=== PATIENT | female | born 1990 | race Caucasian/White ===

== ENCOUNTER 2018-07-20 14:09 | Emergency (ER) | payer OTHER ==
[2018-07-20] MEDS ORDERED: Ondansetron PF 4 MG/2 ML Vial ONE (15:04)
[2018-07-20 15:16] LABS: #Basophils 0.2 thou/uL (0.0-0.2); #Lymphocytes 1.9 thou/uL (1.20-3.40); #Monocytes 1.3 thou/uL (0.11-0.59); #Neutrophils 7.9 thou/uL (1.40-6.50); %Basophils 1.4 % (0.0-1.0); %Eosinophils 0.4 % (0.0-10.0); %Lymphocytes 17.1 % (21.0-51.0); %Monocytes 11.4 % (0.0-10.0); %Neutrophils 69.8 % (42.0-75.0); Hemoglobin 12.3 g/dL (12.0-16.0); Mean Corpuscular HGB CONC 33.7 g/dL (32.0-36.0); Mean Corpuscular Hemoglobin 30.3 pg (27.0-31.0); Mean Corpuscular Volume 89.8 fL (78.0-98.0); Mean Platelet Volume 7.6 fL (7.4-10.4); Platelet Count 414 thou/uL (130-400); RBC Distribution Width 11.5 % (11.5-14.5); Red Blood Cell (RBC) Count 4.08 mill/uL (4.20-5.40); White Blood Cell (WBC) Count 11.3 thou/uL (4.8-10.8)
[2018-07-20 15:38] LABS: ALT (SGPT) 16 U/L (8-55); AST (SGOT) 22 U/L (5-34); Albumin 4.4 g/dL (3.5-5.0); Alkaline Phosphatase 52 U/L (40-150); Anion Gap 16 mmol/L (10-20); BUN (Urea Nitrogen) 6 mg/dL (7.0-18.7); Bilirubin, Total 0.6 mg/dL (0.2-1.2); Calc. Creatinine Clearance 0 mL/min (70-130); Calcium 9.6 mg/dL (7.8-10.44); Carbon Dioxide 21 mmol/L (22-29); Chloride 99 mmol/L (98-107); Estimated GFR-MDRD Greater than 90; Globulin 3.7 g/dL (2.4-3.5); Glucose 76 mg/dL (70-105); Potassium 3.7 mmol/L (3.5-5.1); Protein, Total 8.1 g/dL (6.0-8.3); Sodium 132 mmol/L (136-145)
[2018-07-20 16:11] LABS: Bilirubin Negative (Negative); Blood, Urine Trace (Negative); Clarity CLEAR (Clear); Glucose, Urine (Dipstick) Negative (Negative); Leukocyte Negative (Negative); Nitrite Negative (Negative); Protein, Urine (Dipstick) Negative (Neg-Trace); Specific Gravity, Urine 1.006 (1.002-1.036); Urobilinogen 0.2 mg/dL (0.2-1.0); pH, Urine 6.5 (5.0-9.0)
[2018-07-20 16:16] LABS: Bacteria/HPF None Seen HPF (None Seen); Hyaline Casts/LPF 0-3 HYALINE CAST LPF (0-3 Hyaline); Pathc Cast-AUWi Flag 0.27 (0-2.49); Squamous Epithelial 0-3 HPF (0-3); WBC/HPF 0-3 HPF (0-3)
== END 2018-07-20 17:17 | disposition home or self-care (01) ==
LOC: ERS 14:09
DX: O21.1 Hyperemesis gravidarum with metabolic disturbance (principal); O99.342 Other mental disorders complicating pregnancy, second trimester; F31.9 Bipolar disorder, unspecified; F41.9 Anxiety disorder, unspecified; Z3A.17 17 weeks gestation of pregnancy; Z79.899 Other long term (current) drug therapy
CPT/HCPCS: 80053; 81003; 81015; 85025; 96361; 96374; J2405

== ENCOUNTER 2018-07-24 08:25 | Outpatient (CLI) | payer OTHER ==
--- NOTE | 2018-07-24 09:07 | ULT ---
FUltrasound abdomen limited: (Right upper quadrant) 07/16/2018 HISTORY: 28-year-old female with nausea and vomiting. FINDINGS: Liver, pancreas, have normal sonographic appearances. Common duct caliber 4 mm. No hydronephrosis of right kidney. Gallbladder has normal wall thickness with no stones or sludge. No pericholecystic fluid or sonograph ic Hagen sign. IMPRESSION: Normal
== END 2018-07-24 08:26 | disposition home or self-care (01) ==
LOC: BICULT 08:25
PROVIDERS: ATTEND Obstetrics & Gynecology
DX: R11.2 Nausea with vomiting, unspecified (principal)
CPT/HCPCS: 76705

== ENCOUNTER 2018-09-12 09:18 | Observation (INO) | payer OTHER ==
[2018-09-12 10:00] VITALS: BMI 21.5
[2018-09-12] MEDS ORDERED: Acetaminophen 500 MG TAB PO SCH (10:15)
[2018-09-12] MEDS ORDERED: Ondansetron HCl/PF 4 MG in Sodium Chloride 0.9% 50 ML IVPB PRN (10:15)
[2018-09-12] MEDS ORDERED: Morphine 4 MG/ML VIAL ONE (10:15)
--- NOTE | 2018-09-12 10:15 | PDOC.LDHP ---
Labor and Delivery H&P Chief complaint: abdominal pain HPI: 28 y/o at 24w4d, patient of Dr. Nuñez, presents with left sided back, flank, and abdominal pain. Denies VB, LOF, ctx, or decreased FM. ROS neg for HEENT, cv, pulm, gi, gu, neuro, psych, skin, musculoskeletal or constitutional symptoms other than mentioned above. OB History Details: 1 prior term Past Medical History: Bipolar d/o Current medications: pre-gracy vitamins, other (seroquel) Previous surgical history: other (nose surgery, tonsillectomy) Allergies/Adverse Reactions: Allergies Allergy/AdvReac Type Severity Reaction Status Date / Time No Known Allergies Allergy Verified 09/12/18 09:56 Social history: none - Physical Exam Vital signs reviewed and normal: yes General: NAD, other (appears uncomfortable) Lungs: nonlabored breathing Abdomen: gravid Extremeties: no edema FHT: category 1 - Assessment Left sided kidney stone, partially obstructing but likely actively passing - Plan Plan: observation in L&D (for pain control) -: Stadol 2mg for pain IV fluids Flomax
[2018-09-12] MEDS ORDERED: Ondansetron PF 4 MG/2 ML Vial ONE (10:16)
[2018-09-12 10:18] LABS: Bilirubin Negative (Negative); Blood, Urine Trace (Negative); Clarity TURBID (Clear); Glucose, Urine (Dipstick) Negative (Negative); Leukocyte Moderate (Negative); Nitrite Negative (Negative); Protein, Urine (Dipstick) Negative (Neg-Trace); Specific Gravity, Urine 1.009 (1.002-1.036); Urobilinogen 0.2 mg/dL (0.2-1.0)
[2018-09-12 10:21] LABS: Bacteria/HPF 1+ HPF (None Seen); Pathc Cast-AUWi Flag 0.95 (0-2.49)
[2018-09-12] MEDS: Lactated Ringer's 1,000 ML IV SCH ×4 (10:23→23:39)
[2018-09-12] MEDS: Morphine 4 MG/ML VIAL SLOW IVP PRN (10:32)
[2018-09-12 10:33] LABS: Crystals/HPF 2+ AMORPH PHOS HPF (Negative); Hyaline Casts/LPF 0-3 HYALINE CAST LPF (0-3 Hyaline); Renal Epithelial None Seen HPF (0-3); Transitional Epithelial NONE SEEN HPF (0-3)
[2018-09-12 10:35] LABS: Urine Culture Reflex No No
[2018-09-12 11:04] LABS: #Basophils 0.1 thou/uL (0.0-0.2); #Eosinphils 0.1 thou/uL (0.0-0.7); #Lymphocytes 2.4 thou/uL (1.20-3.40); #Monocytes 1.5 thou/uL (0.11-0.59); #Neutrophils 7.4 thou/uL (1.40-6.50); %Basophils 0.8 % (0.0-1.0); %Eosinophils 0.9 % (0.0-10.0); %Lymphocytes 20.7 % (21.0-51.0); %Monocytes 12.9 % (0.0-10.0); %Neutrophils 64.6 % (42.0-75.0); Hemoglobin 10.7 g/dL (12.0-16.0); Mean Corpuscular HGB CONC 34.2 g/dL (32.0-36.0); Mean Corpuscular Hemoglobin 30.5 pg (27.0-31.0); Mean Corpuscular Volume 89.1 fL (78.0-98.0); Mean Platelet Volume 8.2 fL (7.4-10.4); Platelet Count 383 thou/uL (130-400); RBC Distribution Width 11.3 % (11.5-14.5); Red Blood Cell (RBC) Count 3.52 mill/uL (4.20-5.40); White Blood Cell (WBC) Count 11.4 thou/uL (4.8-10.8)
[2018-09-12 11:23] LABS: ALT (SGPT) 17 U/L (8-55); AST (SGOT) 19 U/L (5-34); Albumin 4.1 g/dL (3.5-5.0); Alkaline Phosphatase 62 U/L (40-150); Anion Gap 14 mmol/L (10-20); BUN (Urea Nitrogen) 9 mg/dL (7.0-18.7); Bilirubin, Total 0.2 mg/dL (0.2-1.2); Calc. Creatinine Clearance 159 mL/min (70-130); Calcium 9.9 mg/dL (7.8-10.44); Carbon Dioxide 25 mmol/L (22-29); Chloride 103 mmol/L (98-107); Estimated GFR-MDRD Greater than 90; Globulin 2.8 g/dL (2.4-3.5); Glucose 89 mg/dL (70-105); Potassium 3.8 mmol/L (3.5-5.1); Protein, Total 6.9 g/dL (6.0-8.3); Sodium 138 mmol/L (136-145)
[2018-09-12] MEDS ORDERED: Promethazine HCl 25 MG/ML VIAL IVPB PRN (11:52)
--- NOTE | 2018-09-12 11:57 | ULT ---
US Renal Bilateral STANDARD History: [Left flank pain.] Comparison: None. Findings: Real-time grayscale and color evaluation of the kidneys and urinary bladder was performed. The right kidney measures 11.9 x 6.8 x 6.3 cm with mild hydronephrosis. The right ureteral jet is nor mal. The left kidney measures 12.9 x 7.3 x 6 cm with moderate hydronephrosis. There is a calculus in the left ureterovesicular junction, on the bladder side of the junction, with a relatively weak le ft ureterovesicular urine jet. No renal mass is present. Prevoid urinary bladder volume is 503 mL. Impression: 1. Partially obstructive calculus left ureterovesicular junction, on the bladder side of the junction , with moderate left hydronephrosis. The stone appears to be actively passing as there is a weak left urine jet. 2. Right mild hydronephrosis of .
[2018-09-12] MEDS ORDERED: Tamsulosin HCl 0.4 MG CAP PO SCH (12:30)
[2018-09-12] MEDS ORDERED: Promethazine HCl 25 MG in Sodium Chloride 0.9% 50 ML IVPB PRN (12:39)
[2018-09-12] MEDS ORDERED: Tamsulosin HCl 0.4 MG CAP PO STA (13:16)
[2018-09-12] MEDS ORDERED: Butorphanol Tartrate 1 MG/ML VIAL ONE ×2 (14:39→14:47)
[2018-09-12] MEDS ORDERED: Butorphanol Tartrate 1 MG/ML VIAL SLOW IVP PRN (14:42)
[2018-09-12] MEDS ORDERED: Acetaminophen 500 MG TAB PO PRN (17:12)
[2018-09-12] MEDS ORDERED: Promethazine HCl 25 MG/ML VIAL IM PRN (17:12)
[2018-09-12] MEDS ORDERED: Ondansetron PF 4 MG/2 ML Vial IVP PRN (17:12)
[2018-09-12] MEDS: Butorphanol Tartrate 1 MG/ML VIAL SLOW IVP PRN ×3 (19:45→23:41)
[2018-09-13] MEDS: Morphine 4 MG/ML VIAL SLOW IVP PRN (01:15)
[2018-09-13] MEDS: Butorphanol Tartrate 1 MG/ML VIAL SLOW IVP PRN ×3 (03:05→08:40)
--- NOTE | 2018-09-13 06:38 | PDOC.LDPN ---
Labor & Delivery Progress Note - Subjective Subjective: comfortable, no concerns, other (Some mild left flank pain, improved from yesterday) - Objective Vital signs reviewed and normal: yes General: NAD Uterine fundus: non tender [place] contractions every: None - Assessment (1) with nephrolithiasis Code(s): O26.839 - RELATED RENAL DISEASE, UNSPECIFIED TRIMESTER; N20.0 - CALCULUS OF KIDNEY Current Visit: Yes Status: Acute Comment: - Cont pain control with stadol and morphine, daily flomax. Has some sediment on urine screen, likely passing vs passed, consider DC later today. Pain currently well controlled. Afebrile
[2018-09-13] MEDS: Lactated Ringer's 1,000 ML IV SCH ×2 (07:55→08:19)
[2018-09-13] MEDS ORDERED: Tamsulosin HCl 0.4 MG CAP PO SCH (09:00)
[2018-09-13] MEDS ORDERED: Acetaminophen/Codeine 30-300mg Tablet PO PRN ×2 (09:13)
--- NOTE | 2018-09-13 09:34 | PDOC.EVN ---
Event Note - Event Note Event Note: Patient seen with Dr. Winkler. Pain much better at this time. She is agreeable to trial of PO pain medication and repeat UA this morning. Will likely d/c this afternoon if tolerating PO and pain well-controlled. Addendum - Attending - Attending Attestation Date/Time: 09/13/18 3938 I personally evaluated the patient and discussed the management with Dr. Hernandez. I agree with the Assessment and Plan documented above.
[2018-09-13 09:52] LABS: Bilirubin Negative (Negative); Blood, Urine Moderate (Negative); Clarity CLOUDY (Clear); Glucose, Urine (Dipstick) Negative (Negative); Leukocyte Negative (Negative); Nitrite Negative (Negative); Protein, Urine (Dipstick) Negative (Neg-Trace); Specific Gravity, Urine 1.003 (1.002-1.036); Urobilinogen 0.2 mg/dL (0.2-1.0); pH, Urine 7.5 (5.0-9.0)
[2018-09-13 09:54] VITALS: BP 127/71; TEMP 97.9
[2018-09-13 09:54] LABS: Bacteria/HPF None Seen HPF (None Seen); Hyaline Casts/LPF 0-3 HYALINE CAST LPF (0-3 Hyaline); Pathc Cast-AUWi Flag 0.13 (0-2.49); RBC/HPF 0-3 HPF (0-3); Squamous Epithelial 0-3 HPF (0-3)
--- NOTE | 2018-09-13 10:09 | PDOC.EVN ---
Event Note - Event Note Event Note: 28 yo at 24w here for symptomatic nephrolithiasis. She was admitted overnight for IV fluids, pain control and this morning has passed kidney stone. Overall feeling much better, tolerating PO. Renal sono showed mild hydronephrosis but no evidence of abscess. Labs reviewed and repeat UA showed no bacteria or e/o infection apart for few WBC and RBC. Will discharge today with short supply of Tylenol #3 (12) for pain control. Stone sent for evaluation. F/u with Dr. Garcia within next week advised. Addendum - Attending - Attending Attestation Date/Time: 09/13/18 2159 I personally evaluated the patient and discussed the management with Dr. Hernandez. Feeling much better since passing stone this AM. UA is unremarkable this AM. DC home with precautions. I agree with the Assessment and Plan documented above.
--- NOTE | 2018-09-15 14:56 | DIS ---
DATE OF ADMISSION: 09/12/2018 DATE OF DISCHARGE: 09/13/2018 RESIDENT: Camille Hernandez MD, PGY-3 ADMITTING ATTENDING: Shikha Burrows MD DISCHARGE ATTENDING: Paul Winkler MD. IMAGING: Renal ultrasound (09/12/2018): 1. Partially obstructive calculus at the left ureterovesical junction on the bladder side of the junction with moderate left hydronephrosis. The stone appears to be actively passing as there is a weak left urine jet. 2. Right mild hydronephrosis of . DISCHARGE MEDICATIONS: 1. vitamin. 2. Tylenol No.3, take one tablet q.6 hours p.r.n. severe pain, quantity 12. HISTORY OF PRESENT ILLNESS/HOSPITAL COURSE: The patient is a 28-year-old G2, P1 , who presented at 24 weeks and 4 days with left-sided back and flank pain. She denied any other symptoms at that time. A renal ultrasound was performed which showed a stone at the left ureterovesical junction. She was admitted for pain control and IV hydration. She passed the stone the following morning with significant pain relief apart from some mild cramping pains which were intermittent. She was tolerating p.o. and voiding without issue prior to discharge. She is being discharged with pain medications and instructions to follow up with Dr. Nuñez within the next week. Repeat urinalysis was performed which did not show any signs of infection. DISPOSITION: Stable. DISCHARGE INSTRUCTIONS: 1. Location: Home. 2. Diet: Regular. 3. Activity: As tolerated. 4. Followup: With Dr. Nuñez within 1 week. Job ID: [id number] MTDD
[2018-09-18 13:12] LABS: CA Phosphate 97 % (.); Color Tan (.); Stone Size 3x3x3 mm (.); Stone Weight 20.3 mg (.)
== END 2018-09-13 10:41 | disposition home health service (06) ==
LOC: L&D/OP 09:18 → L&D 17:22
PROVIDERS: ADMIT Obstetrics & Gynecology; ATTEND Obstetrics & Gynecology
DX: O99.89 Other specified diseases and conditions complicating pregnancy, childbirth and the puerperium (principal); N13.0 Hydronephrosis with ureteropelvic junction obstruction; Z3A.24 24 weeks gestation of pregnancy
CPT/HCPCS: 36415; 76770; 80053; 81001; 81003; 81015; 82365; 85025; 88300; 96361; 96374; 96375; 96376; 99285; G0378; J0595; J2270; J2405; J2550; J7050

== ENCOUNTER 2018-12-25 19:15 | Inpatient (IN) | payer OTHER ==
--- NOTE | 2018-12-25 08:21 | PDOC.LDHP ---
Labor and Delivery H&P Chief complaint: scheduled induction HPI: 28 yo @ 39w3d by LMP c/w 12 week CRL who presents for EIOL. PMHx: Depression on Lexapro and prior THC use, otherwise benign antepartum course. Current gestational age (weeks): 39 Dating criteria: last menstrual period Grav: 2 Para: 1 Current complications: none Abnormal US findings: No Past Medical History: Depression Bipolar d/o Current medications: pre-gracy vitamins, iron, other (Lexapro) Previous surgical history: other (T&A; nasal surgery) Allergies/Adverse Reactions: Allergies Allergy/AdvReac Type Severity Reaction Status Date / Time No Known Allergies Allergy Verified 09/12/18 09:56 Social history: drug use (Prior THC use, recent neg UDS) - Physical Exam Vital signs reviewed and normal: yes General: NAD Heart: RRR Lungs: CTAB Abdomen: gravid Extremeties: no edema FHT: category 1 (120s, mod tunde, +accels, no decels) [place] contractions every: q1-2 min - Vaginal Exam cm dilated: 8 (AROM- thick mec; cephalic) Effacement: 100% Station: 0 - OB Labs Blood type: O RH: positive Antibody Screen: negative HIV: negative RPR: negative HEPSAg: negative 1 hour GCT: negative GBS: negative Urine drug screen: positive (recent UDS neg) Rubella: immune - Assessment 39w3d IUP EIOL Anemia Prior THC use Depression - Plan Plan: admit to L&D, cervical ripening (s/p cytotec, now on pitocin), informed consent obtained, anesthesia consult for pain management
[2018-12-26 00:56] VITALS: BMI 25.2
[2018-12-26] MEDS ORDERED: Diphenoxylate HCl/Atropine Tablet PO PRN (01:02)
[2018-12-26] MEDS ORDERED: Ibuprofen 800 MG TAB PO PRN (01:02)
[2018-12-26] MEDS ORDERED: Promethazine HCl 25 MG/ML VIAL IM PRN ×2 (01:02→05:55)
[2018-12-26] MEDS ORDERED: Carboprost 250 MCG/ML AMP IM PRN (01:02)
[2018-12-26] MEDS ORDERED: Acetaminophen 500 MG TAB PO PRN (01:02)
[2018-12-26] MEDS ORDERED: HYDROcodone/Acetaminophen 5/325 mg Tablet PO PRN (01:02)
[2018-12-26] MEDS ORDERED: NS / Oxytocin 40 units/1000ml 1,000 ML IV PRN (01:02)
[2018-12-26] MEDS ORDERED: Misoprostol 200 MCG TAB PR PRN (01:02)
[2018-12-26] MEDS ORDERED: hydrALAZINE 20 MG/ML VIAL SLOW IVP PRN ×2 (01:02→09:12)
[2018-12-26] MEDS ORDERED: Lidocaine 1% (PF) 30 ML VIAL SC PRN (01:02)
[2018-12-26] MEDS ORDERED: Methylergonovine 0.2 MG/ML VIAL IM PRN (01:02)
[2018-12-26] MEDS ORDERED: Ondansetron PF 4 MG/2 ML Vial IVP PRN ×2 (01:02→05:55)
[2018-12-26] MEDS ORDERED: Butorphanol Tartrate 1 MG/ML VIAL SLOW IVP PRN (01:02)
[2018-12-26] MEDS: Misoprostol 100 MCG TAB VAG SCH (01:27)
[2018-12-26] MEDS: Lactated Ringer's 1,000 ML IV SCH (01:27)
[2018-12-26 01:30] LABS: Mean Corpuscular HGB CONC 34.3 g/dL (32.0-36.0); Mean Corpuscular Hemoglobin 28.9 pg (27.0-31.0); Mean Corpuscular Volume 84.3 fL (78.0-98.0); Mean Platelet Volume 8.5 fL (7.4-10.4); Platelet Count 293 thou/uL (130-400); RBC Distribution Width 15.2 % (11.5-14.5); Red Blood Cell (RBC) Count 3.79 mill/uL (4.20-5.40); White Blood Cell (WBC) Count 9.9 thou/uL (4.8-10.8)
[2018-12-26 02:08] LABS: HBSAg Index 0.18 S/CO (0-0.99); HIV (1/2) Antibody/Antigen Non-Reactive (NonReactive); HIV 1/2 INDEX 0.09 S/CO (<1.00); Hep B Surf Ag Non-Reactive S/CO (NonReactive)
[2018-12-26 04:30] LABS: Syphilis Antibody Nonreactive (Nonreactive); Syphilis Antibody Index 0.04 S/CO (<1.00 Non-Reactive)
[2018-12-26] MEDS ORDERED: Lidocaine 1.5%/Epinephrine 1:200,000 5 ML AMPUL IJ ONE (05:21)
[2018-12-26] MEDS ORDERED: Fentanyl 4 mcg/Bup 0.1% Cadd 100 ML ONE (05:22)
[2018-12-26] MEDS ORDERED: ePHEDrine/0.9% NaCl/PF SYRINGE 50 mg/10 ml SLOW IVP PRN (05:55)
[2018-12-26] MEDS ORDERED: Acetaminophen 325 MG TAB PO PRN (05:55)
[2018-12-26] MEDS ORDERED: Lactated Ringer's 500 ML IV PRN (05:55)
[2018-12-26] MEDS ORDERED: diphenhydrAMINE 50 MG/ML VIAL IVP PRN (05:55)
[2018-12-26] MEDS ORDERED: Naloxone HCl 0.4 mg/ml Vial IVP PRN ×2 (05:55)
[2018-12-26] MEDS ORDERED: Communication Order-Pharmacy FS SCH (06:00)
[2018-12-26] MEDS ORDERED: Fentanyl 4 mcg/Bupivacaine 0.1% Cassette 100 ML EPIDURAL SCH (06:00)
[2018-12-26] MEDS ORDERED: Lidocaine 1% (PF) 30 ML VIAL ONE (08:20)
[2018-12-26] MEDS ORDERED: NS / Oxytocin 40 units/1000ml 1,000 ML ONE (08:20)
--- NOTE | 2018-12-26 08:49 | PDOC.OPDEL ---
OB Operative/Delivery Note Delivery Dr/Surgeon: Dia Nuñez DO Pre-Delivery Diagnosis: elective induction Procedure/Post Delivery Dx: spontaneous vaginal delivery Weeks gestation: 39 Anesthesia: epidural - Findings A Sex: female - 1 min: 8 - 5 min: 9 - Additional Findings/Plan Placenta delivered: spontaneous Repaired Obstetrical Laceration: 2nd degree Estimated blood loss: EBL 200 cc Compilations/Other Findings: in cephalic presentation ISMAEL position Meconium stained AF Normal appearing placenta Post delivery plan: routine recovery
[2018-12-26] MEDS ORDERED: diphenhydrAMINE 25 MG CAP PO PRN (09:12)
[2018-12-26] MEDS ORDERED: NS / Oxytocin 40 units/1000ml 1,000 ML IV SCH (09:12)
[2018-12-26] MEDS ORDERED: Preparation H Ointment 28 GM TUBE PR PRN (09:12)
[2018-12-26] MEDS ORDERED: Milk Of Magnesia 30 ML UDCUP PO PRN (09:12)
[2018-12-26] MEDS ORDERED: Bisacodyl 10 MG SUPP PR PRN (09:12)
[2018-12-26] MEDS ORDERED: Lanolin Ointment 7 GM TUBE TOP PRN (09:12)
[2018-12-26 09:48] LABS: Amphetamine Not Detected (NotDetected); Barbiturates Screen Not Detected (NotDetected); Benzodiazepine Screen Not Detected (NotDetected); Cocaine Metabolite Screen Not Detected (NotDetected); Medtox Control Line Valid? VALID (VALID); Medtox Reader # READER 4; Methadone Not Detected (NotDetected); Methamphetamine Not Detected (NotDetected); Opiate Screen Not Detected (NotDetected); Oxycodone Screen Not Detected (NotDetected); Phencyclidine (PCP) Not Detected (NotDetected); THC/Cannabinoid Screen Not Detected (NotDetected); Tricyclic Screen Not Detected (NotDetected)
[2018-12-26] MEDS ORDERED: Bupivacaine 0.25% HCL 30 ML VIAL ONE (11:11)
[2018-12-26] MEDS: Ibuprofen 800 MG TAB PO SCH ×2 (11:44→20:24)
[2018-12-26] MEDS ORDERED: Benzocaine-Menthol 82.5 ML CAN TOP PRN (12:10)
[2018-12-26] MEDS ORDERED: Fentanyl 100 MCG/2 ML VIAL ONE (12:20)
[2018-12-26] MEDS ORDERED: Midazolam HCl 2 mg/2 ml Vial ONE (12:20)
[2018-12-26] MEDS: HYDROcodone/Acetaminophen 5/325 mg Tablet PO PRN ×3 (13:43→22:26)
[2018-12-26] MEDS: NS w/ Oxytocin 10 units 500 ML IV SCH (14:07)
[2018-12-26] MEDS: Ferrous Sulfate 325 MG TAB PO SCH (17:49)
[2018-12-26] MEDS: Docusate Calcium (SURFAK) 240 MG CAP PO SCH (20:24)
[2018-12-27] MEDS: HYDROcodone/Acetaminophen 5/325 mg Tablet PO PRN ×4 (02:01→21:30)
[2018-12-27] MEDS: Ibuprofen 800 MG TAB PO SCH ×3 (04:23→20:20)
[2018-12-27 06:29] LABS: Hemoglobin 10.4 g/dL (12.0-16.0); Mean Corpuscular HGB CONC 32.8 g/dL (32.0-36.0); Mean Corpuscular Hemoglobin 28.5 pg (27.0-31.0); Mean Platelet Volume 8.6 fL (7.4-10.4); Platelet Count 263 thou/uL (130-400); RBC Distribution Width 15.3 % (11.5-14.5); Red Blood Cell (RBC) Count 3.66 mill/uL (4.20-5.40); White Blood Cell (WBC) Count 11.6 thou/uL (4.8-10.8)
--- NOTE | 2018-12-27 06:44 | PDOC.PP ---
Post Progress Note Post Day #: 1 Subjective: Reports not sleeping well last night, baby just went to nursery. Backpain and cramping relieved with Ibuprofen. Has been using heating pad for hemorrhoid/ suture pain. Ambulating and tolerating diet. Desires to breastfeed however is having difficulty with latching. Breastfed first child successfully. PO intake tolerated: yes Flatus: yes Ambulation: yes Vital Signs (12 hours) Temp Pulse Resp BP Pulse Ox 12/27/18 04:20 98.3 F 80 16 119/58 L 12/26/18 20:00 98 F 78 18 108/57 L 98 Weight Weight 77.564 kg - Physical Examination General: NAD Cardiovascular: no m/r/g, RRR Respiratory: clear to auscultation bilaterally, non-labored breathing Abdominal: + bowel sounds, lochia, appropriately TTP Psychiatric: A&Ox3, normal affect Result Diagrams: 12/27/18 06:11 Additional Labs: Post Labs Blood Type O POSITIVE 12/26/18 02:08 Hep Bs Antigen Non-Reactive S/CO (NonReactive) 12/26/18 01:19 - Assessment/Plan 28 yo delivered via @39.4wk by LMP c/w 12wk US Term sIUP, delivered - PPD #1 - Meeting PP milestones, continue routine PP course - consulted - Likely discharge tomorrow Bess Molina MD PGY-2 Pt also evaluated by Dr Burrows
[2018-12-27] MEDS: Ferrous Sulfate 325 MG TAB PO SCH ×2 (09:00→16:45)
[2018-12-27] MEDS: Prenatal Vitamin 1 TAB PO SCH (09:00)
[2018-12-27] MEDS: Docusate Calcium (SURFAK) 240 MG CAP PO SCH ×2 (09:01→20:21)
[2018-12-27] MEDS: NS w/ Oxytocin 10 units 500 ML IV SCH (10:55)
--- NOTE | 2018-12-28 01:14 | PDOC.PP ---
Post Progress Note Post Day #: 2 Subjective: 28 yo G2 now P2 pp day 2 s/p . Meeting all pp milestones. No concerns. No complaints. PO intake tolerated: yes Flatus: yes Ambulation: yes Vital Signs (12 hours) Temp Pulse Resp BP Pulse Ox 12/27/18 20:00 98.2 F 77 18 138/92 H 97 Weight Weight 77.564 kg - Physical Examination General: NAD Cardiovascular: no m/r/g, RRR Respiratory: clear to auscultation bilaterally, non-labored breathing Abdominal: + bowel sounds, no distention, appropriately TTP Neurological: no gross focal deficits Psychiatric: normal affect Result Diagrams: 12/27/18 06:11 Additional Labs: Post Labs Blood Type O POSITIVE 12/26/18 02:08 Hep Bs Antigen Non-Reactive S/CO (NonReactive) 12/26/18 01:19 (1) Vaginal delivery Code(s): O80 - ENCOUNTER FOR FULL-TERM UNCOMPLICATED DELIVERY Status: Acute - Assessment/Plan 1) pp day 2 , pt doing well and all pp milestones met - plan for dc this afternoon - rx for prn t3 and motrin+ tylenol - f/u 6 weeks for pp f/u Addendum - Attending - Attending Attestation Date/Time: 12/28/18 8055 I personally evaluated the patient and discussed the management with Dr. Soria. I agree with the Assessment and Plan documented above.
[2018-12-28] MEDS: Misoprostol 100 MCG TAB VAG SCH ×2 (03:19→03:20)
[2018-12-28] MEDS: Lactated Ringer's 1,000 ML IV SCH (03:20)
[2018-12-28] MEDS: Ibuprofen 800 MG TAB PO SCH (04:07)
[2018-12-28] MEDS: HYDROcodone/Acetaminophen 5/325 mg Tablet PO PRN ×2 (04:55→09:30)
[2018-12-28] MEDS: NS w/ Oxytocin 10 units 500 ML IV SCH (06:11)
[2018-12-28 08:51] VITALS: BP 133/90; TEMP 98.5
[2018-12-28] MEDS: Docusate Calcium (SURFAK) 240 MG CAP PO SCH (09:15)
[2018-12-28] MEDS: Ferrous Sulfate 325 MG TAB PO SCH (09:15)
[2018-12-28] MEDS: Prenatal Vitamin 1 TAB PO SCH (09:15)
== END 2018-12-28 11:45 | disposition home or self-care (01) | DRG 807 ==
LOC: L&D 12-26 00:23 → 3SW 12-26 11:32
PROVIDERS: ADMIT Obstetrics & Gynecology; ATTEND Obstetrics & Gynecology
PROC: 10E0XZZ Delivery of Products of Conception, External Approach (ICD-10-PCS; principal; 2018-12-26)
PROC: 0KQM0ZZ Repair Perineum Muscle, Open Approach (ICD-10-PCS; 2018-12-26)
PROC: 10907ZC Drainage of Amniotic Fluid, Therapeutic from Products of Conception, Via Natural or Artificial Opening (ICD-10-PCS; 2018-12-26)
PROC: 3E0P7VZ Introduction of Hormone into Female Reproductive, Via Natural or Artificial Opening (ICD-10-PCS; 2018-12-26)
DX: O99.344 Other mental disorders complicating childbirth (principal); Z37.0 Single live birth; O77.0 Labor and delivery complicated by meconium in amniotic fluid; O99.02 Anemia complicating childbirth; D64.9 Anemia, unspecified; O70.1 Second degree perineal laceration during delivery; Z3A.39 39 weeks gestation of pregnancy; F31.9 Bipolar disorder, unspecified
CPT/HCPCS: 36415; 51702; 80306; 85027; 86780; 86850; 86900; 86901; 87340; 87389; J0595; J2001; J2250; J3010; J3490; Q0163; S0020

== ENCOUNTER 2020-08-26 09:18 | Emergency (ER) | payer OTHER ==
[2020-08-26] MEDS ORDERED: Ondansetron ODT 4 MG TAB ONE ×3 (09:25→13:32)
[2020-08-26] MEDS ORDERED: Pantoprazole 40 MG VIAL ONE (10:05)
[2020-08-26] MEDS ORDERED: Haloperidol Lactate 5 MG/ML VIAL ONE (10:46)
[2020-08-26] MEDS ORDERED: Prochlorperazine Maleate 5 MG TAB ONE (12:09)
== END 2020-08-26 13:21 | disposition home or self-care (01) ==
LOC: ERS 09:18
DX: R11.2 Nausea with vomiting, unspecified (principal); Z79.899 Other long term (current) drug therapy
CPT/HCPCS: 96374; 96375; C9113; J1630; Q0162; Q0164